=== PATIENT | female | born 1965 | race Caucasian/White ===

== ENCOUNTER 2025-01-26 06:29 | Day surgery (SDC) | payer BC, SELFPAY | END 2025-01-26 11:40 | disposition home or self-care (01) | LOC: GI 06:29 | PROVIDERS: ATTENDING PHYSICIAN Internal Medicine Gastroenterology | DX: R12 Heartburn (principal); K92.0 Hematemesis; K44.9 Diaphragmatic hernia without obstruction or gangrene; K31.7 Polyp of stomach and duodenum; K21.00 Gastro-esophageal reflux disease with esophagitis, without bleeding; K22.89 Other specified disease of esophagus; Z98.84 Bariatric surgery status; K22.10 Ulcer of esophagus without bleeding | CPT/HCPCS: 43239; 88305 ==